=== PATIENT | male | born 1955 | race African-American/Black ===

== ENCOUNTER 2018-11-13 10:56 | Inpatient (IN) | payer OTHER ==
[2018-11-13 11:25] VITALS: BMI 22.5
--- NOTE | 2018-11-13 13:43 | HP ---
CIWA Score Nausea/Vomitin Muscle Tremors: 2 Anxiety: 2 Agitation: 2 Paroxysmal Sweats: 1-Minimal Palms Moist Orientation: 0-Oriented Tacttile Disturbances: 1-Very Mild Itch/Numbness Auditory Disturbances: 1-Very Mild Visual Disturbances: 0-None Headache: 2-Mild CIWA-Ar Total Score: 13 - Admission Criteria [facility]ASAS Guidelines: Admission for Medically Managed Detox: Requires at least one of the followin. CIWA greater than 12 2. Seizures within the past 24 hours 3. Delirium tremens within the past 24 hours 4. Hallucinations within the past 24 hours 5. Acute intervention needed for co occurring medical disorder 6. Acute intervention needed for co occurring psychiatric disorder 7. Severe withdrawal that cannot be handled at a lower level of care (continued vomiting, continued diarrhea, abnormal vital signs) requiring intravenous medication and/or fluids 8. Admission ROS [facility] - HPI Chief Complaint: i need help to stop drinking alcohol Allergies/Adverse Reactions: Allergies Allergy/AdvReac Type Severity Reaction Status Date / Time No Known Allergies Allergy Verified 11/13/18 13:35 History of Present Illness: this 63 years old male with alcohol dependence,seeking detox,withdrawal symptom, last detox [facility] in 2017 hypertension last medicated yesterday plan for out patient program Exam Limitations: No Limitations - Ebola screening Have you traveled outside of the country in the last 21 days: No Have you had contact with anyone from an Ebola affected area: No Have you been sick,other than usual withdrawal symptoms: No Do you have a fever: No - Review of Systems Constitutional: Loss of Appetite, Malaise, Night Sweats, Changes in sleep, Weakness EENT: reports: Nose Congestion Respiratory: reports: No Symptoms reported Cardiac: reports: No Symptoms Reported GI: reports: Nausea, Poor Appetite, Abdominal cramping : reports: No Symptoms Reported Musculoskeletal: reports: Back Pain, Muscle Pain Integumentary: reports: Dryness Neuro: reports: Headache, Tremors Endocrine: reports: No Symptoms Reported Hematology: reports: No Symptoms Reported Psychiatric: reports: No Sypmtoms Reported, Judgement Intact, Mood/Affect Appropiate, Orientated x3 Other Systems: Reviewed and Negative Patient History - Patient Medical History Hx Anemia: No Hx Asthma: No Hx Chronic Obstructive Pulmonary Disease (COPD): No Hx Cancer: No Hx Cardiac Disorders: No Hx Congestive Heart Failure: No Hx Hypertension: Yes (on med) Hx Hypercholesterolemia: No Hx Pacemaker: No HX Cerebrovascular Accident: No Hx Seizures: No Hx Dementia: No Hx Diabetes: No Hx Gastrointestinal Disorders: No Hx Liver Disease: No Hx Genitourinary Disorders: No Hx Sexually Transmitted Disorders: No Hx Renal Disease (ESRD): No Hx Thyroid Disease: No Hx Human Immunodeficiency Virus (HIV): No (never been tested,did not want the test) Hx Hepatitis C: No Hx Depression: No Hx Suicide Attempt: No Hx Bipolar Disorder: No Hx Schizophrenia: No Other Medical History: no sucuidal,no homicidal - Patient Surgical History Hx Appendectomy: Yes (at age 13 years) - PPD History Previous Implant?: Yes Documented Results: Negative w/o proof Implanted On Prior [facility] Admission?: No PPD to be Administered?: Yes - Smoking Cessation Smoking history: Never smoked - Substance & Tx. History Hx Alcohol Use: Yes Hx Substance Use: Yes Substance Use Type: Alcohol Hx Substance Use Treatment: Yes ([facility] 2017 completed) - Substances Abused Alcohol Route: Oral Frequency: Daily Amount used: 6-7 beers Age of first use: 11 Date of Last Use: 11/13/18 Family Disease History - Family Disease History Family History: Denies Admission Physical Exam BHS - Vital Signs Vital Signs: Vital Signs - 24 hr 11/13/18 11:23 Temperature 98.1 F Pulse Rate 94 H Respiratory 18 Rate Blood Pressure 162/81 - Physical General Appearance: Yes: Moderate Distress, Tremorous, Irritable, Sweating, Anxious HEENTM: Yes: Normal ENT Inspection, ABE, Pharynx Normal Respiratory: Yes: Lungs Clear, Normal Breath Sounds, No Respiratory Distress Neck: Yes: Within Normal Limits, Supple, Trachea in good position Breast: Yes: Within Normal Limits Cardiology: Yes: Within Normal Limits, Regular Rhythm, Regular Rate, S1, S2 Abdominal: Yes: Within Normal Limits, Normal Bowel Sounds, Non Tender, Flat, Soft Genitourinary: Yes: Within Normal Limits Back: Yes: Muscle Spasm Musculoskeletal: Yes: Back pain, Muscle Pain Extremities: Yes: Tremors Neurological: Yes: Within Normal Limits, copy director II-XII NML intact, Fully Oriented, Alert, Motor Strength 5/5 Integumentary: Yes: Dry Lymphatic: Yes: Within Normal Limits - Diagnostic (1) Alcohol dependence with uncomplicated withdrawal Current Visit: Yes Status: Acute (2) Essential hypertension Current Visit: Yes Status: Acute Cleared for Admission [facility] - Detox or Rehab [facility] Level of Care: Medically Managed Detox Regimen/Protocol: Librium S Breath Alcohol Content Breath Alcohol Content: 0 Urine Drug Screen - Results Drug Screen Negative: No Urine Drug Screen Results: [facility] Inpatient Rehab Admission - Rehab Decision to Admit Inpatient rehab admission?: No
[2018-11-13] MEDS ORDERED: BISMUTH SUBSALICYLATE 524 MG/30 ML UD PO PRN (13:51)
[2018-11-13] MEDS ORDERED: MELATONIN 5 MG TABLETS PO PRN (13:51)
[2018-11-13] MEDS ORDERED: METHOCARBAMOL 500 MG TABLET PO PRN (13:51)
[2018-11-13] MEDS ORDERED: chlordiazePOXIDE HCL 10 MG CAPSULE PO PRN (13:51)
[2018-11-13] MEDS ORDERED: MAGNESIUM HYDROX 2400MG/30ML ORAL SUSPENSION 30 ML CUP PO PRN (13:51)
[2018-11-13] MEDS ORDERED: ACETAMINOPHEN 325 MG TABLET (FP) PO PRN ×2 (13:51)
[2018-11-13] MEDS ORDERED: MAGNESIUM CITRATE 300 ML BOTTLE PO PRN (13:51)
[2018-11-13] MEDS ORDERED: MAG HYDROX/AL HYDROX/SIMETH 30 ML UNIT-DOSE CUP PO PRN (13:51)
[2018-11-13] MEDS ORDERED: IBUPROFEN 400 MG TABLET (FP) PO PRN (13:51)
[2018-11-13] MEDS ORDERED: MENTHOL/PHENOL 1 EACH UD MM PRN (13:51)
[2018-11-13] MEDS: HYDROCHLOROTHIAZIDE 25 MG TABLET (FP) PO SCH (15:09)
[2018-11-13] MEDS: THIAMINE HCL 100 MG TABLET (FP) PO SCH (23:11)
[2018-11-13] MEDS: chlordiazePOXIDE HCL 25 MG CAPSULE PO SCH (23:16)
[2018-11-14 05:17] LABS: PH,URINE 5.5 (5.0-8.0); URINE APPEARANCE TURBID; URINE BILIRUBIN NEGATIVE (NEGATIVE); URINE COLOR YELLOW; URINE GLUCOSE (UA) NEGATIVE (NEGATIVE); URINE KETONE TRACE (NEGATIVE); URINE LEUK ESTERASE NEGATIVE (NEGATIVE); URINE NITRITE NEGATIVE (NEGATIVE); URINE PROTEIN NEGATIVE (NEGATIVE)
[2018-11-14] MEDS: chlordiazePOXIDE HCL 25 MG CAPSULE PO SCH ×2 (05:57→12:47)
[2018-11-14] MEDS: PRENATAL VITAMINS W/ FOLIC ACID TABLET (FP) PO SCH (10:29)
[2018-11-14] MEDS: HYDROCHLOROTHIAZIDE 25 MG TABLET (FP) PO SCH (10:29)
--- NOTE | 2018-11-14 11:47 | PN ---
S CIWA - CIWA Score Nausea/Vomitin Muscle Tremors: 2 Anxiety: 2 Agitation: 2 Paroxysmal Sweats: 1-Minimal Palms Moist Orientation: 0-Oriented Tacttile Disturbances: 1-Very Mild Itch/Numbness Auditory Disturbances: 1-Very Mild Visual Disturbances: 0-None Headache: 2-Mild CIWA-Ar Total Score: 13 BHS Progress Note (SOAP) Subjective: alert,irritable,anxious,interrupted sleep,tremor Objective: 11/14/18 11:46 Vital Signs Temperature 98.2 F 11/14/18 09:23 Pulse Rate 74 11/14/18 09:23 Respiratory Rate 18 11/14/18 09:23 Blood Pressure 152/84 11/14/18 09:23 O2 Sat by Pulse Oximetry (%) Laboratory Last Values Urine Color Yellow 11/14/18 00:05 Urine Appearance Turbid 11/14/18 00:05 Urine pH 5.5 (5.0-8.0) 11/14/18 00:05 Ur Specific Outing 1.027 (1.010-1.035) 11/14/18 00:05 Urine Protein Negative (NEGATIVE) 11/14/18 00:05 Urine Glucose (UA) Negative (NEGATIVE) 11/14/18 00:05 Urine Ketones Trace (NEGATIVE) H 11/14/18 00:05 Urine Blood Negative (NEGATIVE) 11/14/18 00:05 Urine Nitrite Negative (NEGATIVE) 11/14/18 00:05 Urine Bilirubin Negative (NEGATIVE) 11/14/18 00:05 Urine Urobilinogen 1.0 mg/dL (0.2-1.0) 11/14/18 00:05 Ur Leukocyte Esterase Negative (NEGATIVE) 11/14/18 00:05 Assessment: 11/14/18 11:46 withdrawal symptom Plan: continue detox
[2018-11-14 12:23] LABS: HEMATOCRIT 41.9 % (35.4-49); MCH 28.8 pg (25.7-33.7); MCHC 33.5 g/dl (32.0-35.9); MEAN CELL VOLUME 86.1 fl (80-96); MEAN PLT VOLUME 9.6 fl (7.5-11.1); PLATELET COUNT 172 K/MM3 (134-434); RBC 4.87 M/mm3 (4.00-5.60); RDW 14.8 % (11.9-15.9); WHITE BLOOD COUNT 5.1 K/mm3 (4.0-10.0)
[2018-11-14 12:29] LABS: SICKLE CELL SCREEN NEGATIVE (NEGATIVE)
[2018-11-14 12:51] LABS: ALBUMIN 3.7 g/dl (3.4-5.0); ALK PHOS 78 U/L (45-117); ANION GAP 9 MMOL/L (8-16); BILIRUBIN,TOTAL 0.4 mg/dL (0.2-1); BLOOD UREA NITROGEN 14 mg/dL (7-18); CALCIUM 9.2 mg/dL (8.5-10.1); CHLORIDE 108 mmol/L (98-107); CO2 28 mmol/L (21-32); CREATININE 0.9 mg/dL (0.55-1.3); GLUCOSE,RANDOM 79 mg/dL (74-106); POTASSIUM 3.9 mmol/L (3.5-5.1); SGOT/AST 58 U/L (15-37); SGPT/ALT 33 U/L (13-61); SODIUM 144 mmol/L (136-145); TOT PROT 7.2 g/dl (6.4-8.2)
--- NOTE | 2018-11-14 21:46 | EKG ---
Test Reason : Blood Pressure : / mmHG Vent. Rate : 080 BPM Atrial Rate : 080 BPM P-R Int : 144 ms QRS Dur : 090 ms QT Int : 404 ms P-R-T Axes : 063 -12 003 degrees QTc Int : 465 ms SINUS RHYTHM WITH PREMATURE ATRIAL COMPLEXES NONSPECIFIC ST ABNORMALITY ABNORMAL ECG NO PREVIOUS ECGS AVAILABLE Confirmed by MD MARYELLEN, DELROY ([id number]) on 11/14/2018 9:45:59 PM Referred By: CANELO BROWN Confirmed By:DELROY BOJORQUEZ MD
[2018-11-14] MEDS: THIAMINE HCL 100 MG TABLET (FP) PO SCH (22:35)
[2018-11-14] MEDS: chlordiazePOXIDE 5 MG CAPSULE PO SCH (22:35)
[2018-11-15] MEDS: chlordiazePOXIDE 5 MG CAPSULE PO SCH ×2 (06:41→13:24)
[2018-11-15] MEDS: hydrOXYzine PAMOATE 25 MG CAPSULE (FP) PO PRN (06:43)
[2018-11-15] MEDS ORDERED: cloNIDine HCL 0.1 MG TABLET PO ONE (07:17)
--- NOTE | 2018-11-15 07:19 | PN ---
S Progress Note Note: Patient's blood pressure is b/p 179/114. Patient is asymptomatic Vital Signs Temperature 97.7 F 11/15/18 07:15 Pulse Rate 92 H 11/15/18 07:15 Respiratory Rate 18 11/15/18 07:15 Blood Pressure 179/114 H 11/15/18 07:15 O2 Sat by Pulse Oximetry (%) Action: Clonidine 0.1mg tablet oral ordered
[2018-11-15] MEDS: HYDROCHLOROTHIAZIDE 25 MG TABLET (FP) PO SCH (09:17)
[2018-11-15] MEDS: PRENATAL VITAMINS W/ FOLIC ACID TABLET (FP) PO SCH (09:17)
[2018-11-15] MEDS ORDERED: amLODIPine BESYLATE 10 MG TABLET (FP) PO ONE (10:24)
--- NOTE | 2018-11-15 10:28 | PN ---
[facility] CIWA - CIWA Score Nausea/Vomitin-No Nausea/No Vomiting Muscle Tremors: 3 Anxiety: 2 Agitation: 3 Paroxysmal Sweats: 3 Orientation: 0-Oriented Tacttile Disturbances: 0-None Auditory Disturbances: 0-None Visual Disturbances: 0-None Headache: 0-None Present CIWA-Ar Total Score: [address] [facility] Progress Note (SOAP) Subjective: sweats tired interrupted sleep body aches Objective: 11/15/18 10:27 Vital Signs Temperature 97.7 F 11/15/18 09:49 Pulse Rate 117 H 11/15/18 09:49 Respiratory Rate 20 11/15/18 09:49 Blood Pressure 152/99 11/15/18 09:49 O2 Sat by Pulse Oximetry (%) Laboratory Tests 11/14/18 11/14/18 11/14/18 00:05 07:30 07:30 WBC 5.1 RBC 4.87 Hgb 14.0 Hct 41.9 MCV 86.1 MCH 28.8 MCHC 33.5 RDW 14.8 Plt Count 172 MPV 9.6 Sickle Cell Screen Negative Sodium 144 Potassium 3.9 Chloride 108 H Carbon Dioxide 28 Anion Gap 9 BUN 14 Creatinine 0.9 Creat Clearance w eGFR 84.69 Random Glucose 79 Calcium 9.2 Total Bilirubin 0.4 AST 58 H ALT 33 Alkaline Phosphatase 78 Total Protein 7.2 Albumin 3.7 Urine Color Yellow Urine Appearance Turbid Urine pH 5.5 Ur Specific [place]avor 1.027 Urine Protein Negative Urine Glucose (UA) Negative Urine Ketones Trace H Urine Blood Negative Urine Nitrite Negative Urine Bilirubin Negative Urine Urobilinogen 1.0 Ur Leukocyte Esterase Negative RPR Titer 11/14/18 07:30 WBC RBC Hgb Hct MCV MCH MCHC RDW Plt Count MPV Sickle Cell Screen Sodium Potassium Chloride Carbon Dioxide Anion Gap BUN Creatinine Creat Clearance w eGFR Random Glucose Calcium Total Bilirubin AST ALT Alkaline Phosphatase Total Protein Albumin Urine Color Urine Appearance Urine pH Ur Specific Endeavor Urine Protein Urine Glucose (UA) Urine Ketones Urine Blood Urine Nitrite Urine Bilirubin Urine Urobilinogen Ur Leukocyte Esterase RPR Titer Nonreactive aaox3 ambulating no acute distress Assessment: 11/15/18 10:28 withdrawal sx Plan: continue detox increase fluids
[2018-11-15] MEDS ORDERED: chlordiazePOXIDE HCL 10 MG CAPSULE PO PRN ×2 (19:40→21:00)
[2018-11-15] MEDS ORDERED: cloNIDine HCL 0.1 MG TABLET PO PRN (19:41)
[2018-11-15] MEDS: THIAMINE HCL 100 MG TABLET (FP) PO SCH (22:23)
[2018-11-15] MEDS: chlordiazePOXIDE HCL 10 MG CAPSULE PO SCH (22:23)
[2018-11-16] MEDS: chlordiazePOXIDE HCL 10 MG CAPSULE PO SCH ×3 (05:54→22:44)
[2018-11-16] MEDS: HYDROCHLOROTHIAZIDE 25 MG TABLET (FP) PO SCH (10:59)
[2018-11-16] MEDS: hydrOXYzine PAMOATE 25 MG CAPSULE (FP) PO PRN ×2 (10:59→22:44)
[2018-11-16] MEDS: amLODIPine BESYLATE 10 MG TABLET (FP) PO SCH (10:59)
[2018-11-16] MEDS: PRENATAL VITAMINS W/ FOLIC ACID TABLET (FP) PO SCH (10:59)
--- NOTE | 2018-11-16 11:39 | PN ---
S Progress Note (SOAP) Subjective: alert,irritable,anxious,interrupted sleep Objective: 11/16/18 11:38 Vital Signs Temperature 98.2 F 11/16/18 09:28 Pulse Rate 91 H 11/16/18 09:28 Respiratory Rate 18 11/16/18 09:28 Blood Pressure 129/76 11/16/18 09:28 O2 Sat by Pulse Oximetry (%) Assessment: 11/16/18 11:38 withdrawal symptom Plan: continue detox,discharge in am
[2018-11-16] MEDS: THIAMINE HCL 100 MG TABLET (FP) PO SCH (22:43)
--- NOTE | 2018-11-17 09:09 | DS ---
[facility] Detox Discharge Summary Admission Date: 11/13/18 Discharge Date: 11/17/18 - History Present History: Alcohol Dependence - Physical Exam Results Vital Signs: Vital Signs Temperature 97.9 F 11/17/18 06:00 Pulse Rate 82 11/17/18 06:00 Respiratory Rate 16 11/17/18 06:00 Blood Pressure 108/76 11/17/18 06:00 O2 Sat by Pulse Oximetry (%) - Treatment Hospital Course: Detox Protocol Followed, Detoxed Safely, Responded well, Discharged Condition Good, Rehab Referral Accepted - Medication Discharge Medications: Ambulatory Orders NK [No Known Home Medication] 11/13/18 - Diagnosis (1) Alcohol dependence with uncomplicated withdrawal Current Visit: Yes Status: Chronic (2) Essential hypertension Current Visit: Yes Status: Chronic - AMA Did Patient Leave Against Medical Advice: No (referred to [facility])
[2018-11-17 09:56] VITALS: BP 147/77; PULSE 90; TEMP 97.5
[2018-11-17] MEDS: amLODIPine BESYLATE 10 MG TABLET (FP) PO SCH (10:11)
[2018-11-17] MEDS: HYDROCHLOROTHIAZIDE 25 MG TABLET (FP) PO SCH (10:11)
[2018-11-17] MEDS: PRENATAL VITAMINS W/ FOLIC ACID TABLET (FP) PO SCH (10:11)
== END 2018-11-17 11:36 | disposition home or self-care (01) | DRG 897 ==
LOC: EDSEX → YASAS 10:56 → Y6N 14:11
PROVIDERS: ADMIT Surgery; ATTEND Surgery
PROC: HZ2ZZZZ Detoxification Services for Substance Abuse Treatment (ICD-10-PCS; principal; 2018-11-13)
DX: F10.230 Alcohol dependence with withdrawal, uncomplicated (principal); I10 Essential (primary) hypertension
CPT/HCPCS: 36415; 71045-TC-FY; 80053; 81003; 85027; 85660; 86593; 93005; 93010; J0735